=== PATIENT | male | born 1940 | race Caucasian/White ===

== ENCOUNTER 2016-12-23 11:56 | Emergency (ER) | payer MEDICARE, OTHER ==
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
[~2016-12-23 11:56] MED LIST: BAYER BACK & B1 EACH PO; CALCIUM 500 +1 EACH PO; CENTRUM SILVER1 TAB PO; CLARITIN10 MG PO; COMTAN200 MG PO; DAPSONE25 MG PO; GLUCOSAMINE &1 EAC1 PO; HYDRODIURIL25 MG PO; KRILL OIL500 MG PO; LANTUS (IN100 UNIT/M SUB-Q; LIPITOR80 MG PO; MOBIC15 MG PO; NOVOLOG100 UNIT/M SUB-Q; OCUVITE SOFTGE1 EACH PO; PRILOSEC20 MG PO; SINEMET 25-1001 EACH PO; TENORMIN50 MG PO; VITAMIN C WIT1000 MG PO; ZYLOPRIM100 MG PO
== END 2016-12-23 13:21 | disposition disaster alternative care site (69) ==
LOC: GACC 11:56
PROC: 0HQ1XZZ Repair Face Skin, External Approach (ICD-10-PCS; principal; 2016-12-23)
DX: S01.81XA Laceration without foreign body of other part of head, initial encounter (principal); E11.9 Type 2 diabetes mellitus without complications; I10 Essential (primary) hypertension; X58.XXXA Exposure to other specified factors, initial encounter